=== PATIENT | male | born 1975 | race Two or more races ===

== ENCOUNTER 2022-07-06 15:00 | Inpatient (IN) | payer MEDICARE, MEDICAID ==
[~2022-07-06] VITALS: Ht 170.2 cm; Wt 83.0 kg
[~2022-07-06 15:00] MED LIST: ATEN-187 PO; BENZ2TAB71 PO; HALO5TAB23 PO; LISI10TA24 PO; METF-1211 PO
[2022-07-06 15:21] LABS: GLUCOMETER DEV NAME(LOC) ERT.5; GLUCOSE,POINT OF CARE 176 MG/DL (70-110)
[2022-07-06 15:48] LABS: BASOPHILS % (AUTO) 0.5 % (0.0-2.0); EOSINOPHILS % (AUTO) 2.9 % (1.0-6.0); HEMATOCRIT 43.2 % (41-53); HEMOGLOBIN 14.2 g/dL (13.5-17.5); LYMPHOCYTES # (AUTO) 2.3 K/uL (1.0-4.8); MEAN CORPUSCULAR HEMOGLOBIN 30.5 pg (26.0-34.0); MEAN CORPUSCULAR HGB CONC 32.9 G/dL (31.0-37.0); MEAN CORPUSCULAR VOLUME 93 fL (80-100); MONOCYTES # (AUTO) 0.6 K/uL (0.1-1.0); MONOCYTES % (AUTO) 8.7 % (2.0-9.0); NEUTROPHILS # (AUTO) 3.3 K/uL (1.8-7.7); NEUTROPHILS % (AUTO) 51.9 % (40.0-70.0); PLATELET COUNT (AUTO) 223 K/uL (150-450); RED BLOOD CELL COUNT(AUTO) 4.66 MIL/uL (4.50-5.90); RED CELL DISTRIBUTION WIDTH 13.6 % (11.5-14.5)
[2022-07-06 16:01] LABS: ANION GAP 7 mmol/L (8-16); CALCIUM, TOTAL 8.3 mg/dL (8.8-10.5); CARBON DIOXIDE 30 mmol/L (22-29); CHLORIDE 102 mmol/L (98-107); CREATININE 0.96 mg/dL (0.60-1.30); GLOMERULAR FILTR. RATE CALC > 60 mL/min (>60); GLUCOSE,RANDOM 136 mg/dL (70-110); POTASSIUM 3.7 mmol/L (3.5-5.1); SODIUM SERUM 139 mmol/L (136-145)
[2022-07-06 16:05] LABS: ALANINE AMINOTRANSFERASE 43 U/L (12-78); ALBUMIN 2.8 g/dL (3.4-5.0); ALKALINE PHOSPHATASE 80 U/L (46-116); ASPARTATE AMINOTRANSFERASE 27 U/L (15-37); BILIRUBIN,TOTAL 0.3 mg/dL (0.1-1.0); TOTAL PROTEIN, SERUM 6.4 g/dL (6.4-8.2)
[2022-07-06 17:29] LABS: AMPHET/METH SCREEN,URINE NEGATIVE (NEGATIVE); BARBITURATE SCREEN, URINE NEGATIVE (NEGATIVE); BENZODIAZEPINES SCREEN,URINE NEGATIVE (NEGATIVE); CANNABINOID SCREEN,URINE NEGATIVE (NEGATIVE); COCAINE SCREEN,URINE NEGATIVE (NEGATIVE); METHADONE SCREEN, URINE NEGATIVE (NEGATIVE); OPIATE SCREEN,URINE NEGATIVE (NEGATIVE); PHENCYCLIDINE SCREEN,URINE NEGATIVE (NEGATIVE)
[2022-07-06] MEDS ORDERED: ZOLPIDEM TARTRATE 10 MG TABLET PO PRN (17:30)
[2022-07-06] MEDS ORDERED: LORazepam 2 MG TABLET PO PRN (17:30)
[2022-07-06] MEDS ORDERED: HALOPERIDOL 5 MG TABLET PO PRN (17:30)
[2022-07-06 17:55] LABS: COVID AG,FIA SOURCE NASAL SWAB
[2022-07-07 03:52] VITALS: BP 105/78
[2022-07-07 04:39] VITALS: BP 105/78
[2022-07-07 06:36] LABS: GLUCOMETER DEV NAME(LOC) BV2S.; GLUCOSE,POINT OF CARE 79 MG/DL (70-110)
[2022-07-07 08:23] VITALS: BP 136/78
[2022-07-07] MEDS: DIVALPROEX SODIUM 500 MG DR TABLET PO SCH ×2 (12:46→20:35)
[2022-07-07] MEDS: OLANZapine 10 MG TABLET PO SCH (12:46)
[2022-07-07] MEDS: QUEtiapine FUMARATE 300 MG TABLET PO SCH (20:35)
[2022-07-07 21:46] VITALS: BP 136/78
[2022-07-08 08:00] VITALS: BP 125/78
[2022-07-08] MEDS: DIVALPROEX SODIUM 500 MG DR TABLET PO SCH ×2 (09:39→20:46)
[2022-07-08] MEDS: OLANZapine 10 MG TABLET PO SCH (09:39)
[2022-07-08 20:20] VITALS: BP 144/85
[2022-07-08] MEDS: QUEtiapine FUMARATE 300 MG TABLET PO SCH (20:46)
[2022-07-09] MEDS: DIVALPROEX SODIUM 500 MG DR TABLET PO SCH ×2 (08:26→20:33)
[2022-07-09] MEDS: OLANZapine 10 MG TABLET PO SCH (08:26)
[2022-07-09 08:44] VITALS: BP 114/76
[2022-07-09] MEDS: QUEtiapine FUMARATE 300 MG TABLET PO SCH (20:33)
[2022-07-09 20:43] VITALS: BP 129/89
[2022-07-10 08:22] VITALS: BP 125/90
[2022-07-10] MEDS: OLANZapine 10 MG TABLET PO SCH (08:26)
[2022-07-10] MEDS: DIVALPROEX SODIUM 500 MG DR TABLET PO SCH ×2 (08:26→20:32)
[2022-07-10 20:31] VITALS: BP 124/90
[2022-07-10] MEDS: QUEtiapine FUMARATE 300 MG TABLET PO SCH (20:32)
[2022-07-11 08:49] VITALS: BP 126/84
[2022-07-11] MEDS: DIVALPROEX SODIUM 500 MG DR TABLET PO SCH ×2 (09:05→20:28)
[2022-07-11] MEDS: OLANZapine 10 MG TABLET PO SCH (09:05)
[2022-07-11] MEDS: QUEtiapine FUMARATE 300 MG TABLET PO SCH (20:28)
[2022-07-11 20:44] VITALS: BP 115/72
[2022-07-12 08:08] VITALS: BP 131/80
[2022-07-12] MEDS: OLANZapine 10 MG TABLET PO SCH (09:38)
[2022-07-12] MEDS: DIVALPROEX SODIUM 500 MG DR TABLET PO SCH ×2 (09:38→20:36)
[2022-07-12] MEDS ORDERED: QUET300T19 PO (18:56)
[2022-07-12] MEDS ORDERED: OLAN10 PO (18:56)
[2022-07-12] MEDS ORDERED: DIVA-112 PO (18:56)
[2022-07-12 20:11] VITALS: BP 115/82
[2022-07-12] MEDS: QUEtiapine FUMARATE 300 MG TABLET PO SCH (20:35)
[2022-07-13] MEDS: DIVALPROEX SODIUM 500 MG DR TABLET PO SCH (08:51)
[2022-07-13] MEDS: OLANZapine 10 MG TABLET PO SCH (08:51)
[2022-07-13 09:13] VITALS: BP 134/90
== END 2022-07-13 14:30 | disposition home or self-care (01) | DRG 885 ==
LOC: EMS 15:50 → B2S 07-07 00:01 → B2X 07-07 16:06
PROVIDERS: ADMIT Psychiatry & Neurology Psychiatry; ATTEND Psychiatry & Neurology Psychiatry
DX: F20.0 Paranoid schizophrenia (principal); I10 Essential (primary) hypertension; Z20.822 Contact with and (suspected) exposure to COVID-19; F10.10 Alcohol abuse, uncomplicated; E78.5 Hyperlipidemia, unspecified; E11.9 Type 2 diabetes mellitus without complications; Z79.84 Long term (current) use of oral hypoglycemic drugs; Z79.899 Other long term (current) drug therapy
CPT/HCPCS: 80053; 80164; 80307; 82962; 85025; 99285; G0480

== ENCOUNTER 2023-10-14 20:20 | Inpatient (IN) | payer MEDICARE, MEDICAID ==
[~2023-10-14] VITALS: Ht 170.2 cm; Wt 80.7 kg
[~2023-10-14 20:20] MED LIST changes: -ATEN-187 PO; -BENZ2TAB71 PO; +DIVA-112 PO; -HALO5TAB23 PO; -LISI10TA24 PO; -METF-1211 PO; +OLAN10 PO; +QUET300T19 PO
[2023-10-14] MEDS ORDERED: ICOS1CAP PO (20:58)
[2023-10-14] MEDS ORDERED: RIVA2.5T3 PO (20:58)
[2023-10-14] MEDS ORDERED: DOCU-412 PO (20:58)
[2023-10-14] MEDS ORDERED: HALO10TA21 PO (20:58)
[2023-10-14] MEDS ORDERED: MULT-14 PO (20:58)
[2023-10-14] MEDS ORDERED: EMPA10TA3 PO (20:58)
[2023-10-14] MEDS ORDERED: LISI-894 PO (20:58)
[2023-10-14] MEDS ORDERED: BENZ2TAB84 PO (20:58)
[2023-10-14] MEDS ORDERED: TRAZ150T80 PO (20:58)
[2023-10-14] MEDS ORDERED: ATEN100T92 PO (20:58)
[2023-10-14] MEDS ORDERED: HYDR-4584 PO (20:58)
[2023-10-14] MEDS ORDERED: ASPI-1450 PO (20:58)
[2023-10-14] MEDS ORDERED: ARIP400S3 IM (20:58)
[2023-10-14] MEDS ORDERED: AMLO-258 PO (20:58)
[2023-10-14] MEDS ORDERED: OLAN10TA74 PO (20:58)
[2023-10-14] MEDS ORDERED: LEVO50 PO (20:58)
[2023-10-14] MEDS ORDERED: EZET10TA57 PO (20:58)
[2023-10-14] MEDS: LORazepam 2 MG/ML VIAL IM ONE (21:34)
[2023-10-14] MEDS: HALOPERIDOL LACTATE 5 MG/ML VIAL IM ONE (21:35)
[2023-10-14] MEDS: DiphenhydrAMINE HCL 50 MG/ML VIAL IM ONE (21:35)
[2023-10-14 21:59] LABS: BASOPHILS % (AUTO) 0.4 % (0.0-2.0); EOSINOPHILS % (AUTO) 2.4 % (1.0-6.0); HEMATOCRIT 38.9 % (41-53); HEMOGLOBIN 12.6 g/dL (13.5-17.5); LYMPHOCYTES # (AUTO) 2.8 K/uL (1.0-4.8); MEAN CORPUSCULAR HEMOGLOBIN 30.3 pg (26.0-34.0); MEAN CORPUSCULAR HGB CONC 32.3 G/dL (31.0-37.0); MEAN CORPUSCULAR VOLUME 94 fL (80-100); MONOCYTES # (AUTO) 1.1 K/uL (0.1-1.0); MONOCYTES % (AUTO) 12.1 % (2.0-9.0); NEUTROPHILS # (AUTO) 4.7 K/uL (1.8-7.7); NEUTROPHILS % (AUTO) 53.1 % (40.0-70.0); PLATELET COUNT (AUTO) 119 K/uL (150-450); RED BLOOD CELL COUNT(AUTO) 4.15 MIL/uL (4.50-5.90); RED CELL DISTRIBUTION WIDTH 15.2 % (11.5-14.5); WHITE BLOOD COUNT (AUTO) 8.9 K/uL (4.5-11.0)
[2023-10-14 22:06] LABS: ANION GAP 10 mmol/L (8-16); CALCIUM, TOTAL 8.2 mg/dL (8.8-10.5); CARBON DIOXIDE 29 mmol/L (22-29); CHLORIDE 100 mmol/L (98-107); CREATININE 0.99 mg/dL (0.60-1.30); GLOMERULAR FILTR. RATE CALC > 60 mL/min (>60); GLUCOSE,RANDOM 70 mg/dL (70-110); POTASSIUM 3.8 mmol/L (3.5-5.1); SODIUM SERUM 139 mmol/L (136-145); UREA NITROGEN, BLOOD 22 mg/dL (7-18)
[2023-10-14 22:09] LABS: ALCOHOL, BLOOD (SERUM) < 3 mg/dL (0-10)
[2023-10-14 22:09] LABS: APPEARANCE,URINE CLEAR (CLEAR); BILIRUBIN,URINE NEGATIVE (NEGATIVE); COLOR,URINE LIGHT YELLOW (YELLOW); GLUCOSE, URINE (UA) >=1000 mg/dL (NEGATIVE); KETONES,URINE NEGATIVE (NEGATIVE); LEUKOCYTE ESTERASE ,URINE NEGATIVE (NEGATIVE); NITRATE,URINE NEGATIVE (NEGATIVE); OCCULT BLOOD,URINE NEGATIVE (NEGATIVE); PROTEIN,URINE NEGATIVE (NEGATIVE); SPECIFIC GRAVITIY, URINE 1.015 (1.003-1.030); UROBILINOGEN,URINE <=1.0 mg/dL (<=1.0)
[2023-10-14 22:14] LABS: TROPONIN I-HIGH SENSITIVITY 5 ng/L (<76)
[2023-10-14 22:16] LABS: CREATINE KINASE, TOTAL ONLY 118 U/L (39-308)
[2023-10-14 22:19] LABS: ALCOHOL, URINE DRUG SCREEN NEGATIVE (NEGATIVE); AMPHET/METH SCREEN,URINE NEGATIVE (NEGATIVE); BARBITURATE SCREEN, URINE NEGATIVE (NEGATIVE); BENZODIAZEPINES SCREEN,URINE NEGATIVE (NEGATIVE); CANNABINOID SCREEN,URINE POSITIVE (NEGATIVE); COCAINE SCREEN,URINE NEGATIVE (NEGATIVE); METHADONE SCREEN, URINE NEGATIVE (NEGATIVE); OPIATE SCREEN,URINE NEGATIVE (NEGATIVE); PHENCYCLIDINE SCREEN,URINE NEGATIVE (NEGATIVE)
[2023-10-14 22:26] LABS: BACTERIA,URINE None Seen /HPF (None Seen); RBC,URINE None Seen /HPF (0-2); SQUAMOUS EPITHELIAL CELL,UR None Seen /LPF (None Seen); WBC,URINE None Seen /HPF (0-5)
[2023-10-14 23:20] LABS: COVID AG,FIA SOURCE NASAL SWAB
[2023-10-14 23:38] LABS: SARS-COV2 (COVID) ANTIGEN,FIA Negative (Negative)
[2023-10-15 00:15] VITALS: BP 128/84; PULSE 74; RESP 18; TEMP 97.2; O2SAT 97
[2023-10-15 01:51] VITALS: BP 130/74; PULSE 74; RESP 18; TEMP 97.4; O2SAT 98
[2023-10-15] MEDS ORDERED: DOCUSATE SODIUM 100 MG CAPSULE PO PRN (08:00)
[2023-10-15] MEDS ORDERED: GuaiFENesin/D-METHORPHAN [SUGAR-FREE] 200-20MG/10 ML SYRUP UDCUP PO PRN (08:00)
[2023-10-15] MEDS ORDERED: CloNIDine HCL 0.1 MG TABLET PO PRN (08:00)
[2023-10-15] MEDS ORDERED: LOPERAMIDE HCL 2 MG CAPSULE PO PRN (08:00)
[2023-10-15] MEDS ORDERED: MAGNESIUM HYDROXIDE SUSPENSION 30 ML UDCUP PO PRN (08:00)
[2023-10-15] MEDS ORDERED: ONDANSETRON 4 MG TABLET PO PRN (08:00)
[2023-10-15] MEDS ORDERED: PETROLATUM,WHITE 28 GM JELLY TP PRN (08:00)
[2023-10-15] MEDS ORDERED: ALBUTEROL SULFATE HFA 90 MCG/PUFF 8 GM INHALER IH PRN (08:00)
[2023-10-15] MEDS ORDERED: MAG HYDROX/ALUMINUM HYD/SIMETH ES 30 ML SUSPENSION UDCUP PO PRN (08:00)
[2023-10-15] MEDS ORDERED: ACETAMINOPHEN 325 MG TABLET PO PRN (08:00)
[2023-10-15] MEDS ORDERED: IBUPROFEN 400 MG TABLET PO PRN (08:00)
[2023-10-15] MEDS ORDERED: NICOTINE 14 MG/24 HOUR PATCH TD PRN (08:00)
[2023-10-15] MEDS: EMPAGLIFLOZIN 10 MG TABLET PO SCH (10:11)
[2023-10-15] MEDS: RIVAROXABAN 2.5 MG TABLET PO SCH (10:11)
[2023-10-15] MEDS: EZETIMIBE 10 MG TABLET PO SCH (10:11)
[2023-10-15] MEDS: ASPIRIN 81 MG CHEWABLE TABLET PO SCH (10:12)
[2023-10-15] MEDS: ATENOLOL 100 MG TABLET PO SCH (10:19)
[2023-10-15 10:42] VITALS: BP 117/82; PULSE 71; RESP 18; TEMP 96.8; O2SAT 99
[2023-10-15] MEDS: AmLODIPine BESYLATE 10 MG TABLET PO SCH (10:56)
[2023-10-15 12:09] VITALS: BP 135/68; PULSE 78; RESP 18; O2SAT 97
[2023-10-15] MEDS: LISINOPRIL 20 MG TABLET PO SCH (12:12)
[2023-10-15] MEDS: DIVALPROEX SODIUM 500 MG DR TABLET PO SCH (14:31)
[2023-10-15 16:30] VITALS: BP 112/65; PULSE 69; RESP 18; O2SAT 97
[2023-10-15] MEDS: HydrOXYzine HCL 50 MG TABLET PO SCH (16:32)
[2023-10-15] MEDS: HALOPERIDOL 10 MG TABLET PO SCH (16:32)
[2023-10-15 17:16] LABS: GLUCOMETER DEV NAME(LOC) 3EX.2; GLUCOSE,POINT OF CARE 90 MG/DL (70-110)
[2023-10-15] MEDS: TraZODone HCL 150 MG TABLET PO SCH (21:03)
[2023-10-15] MEDS: QUEtiapine FUMARATE 300 MG TABLET PO SCH (21:03)
[2023-10-15] MEDS: HALOPERIDOL 5 MG TABLET PO PRN (21:04)
[2023-10-15] MEDS: LORazepam 2 MG TABLET PO PRN (21:04)
[2023-10-15 21:14] VITALS: BP 135/86; PULSE 75; RESP 18; TEMP 97.6; O2SAT 97
[2023-10-16] MEDS: LEVOTHYROXINE SODIUM 50 MCG TABLET PO SCH (06:24)
[2023-10-16 06:41] LABS: GLUCOMETER DEV NAME(LOC) 3E.I 2; GLUCOSE,POINT OF CARE 85 MG/DL (70-110)
[2023-10-16 08:29] LABS: CHOL/HDL RATIO 1.9 (4.2-7.3)
[2023-10-16 08:38] LABS: HEMOGLOBIN A1C 5.3 % (3.8-5.6)
[2023-10-16 08:39] LABS: THYROID STIMULATING HORMONE 3.68 uIU/mL (0.36-3.74)
[2023-10-16 09:03] VITALS: BP 107/68; PULSE 72; RESP 18; TEMP 97.8; O2SAT 96
[2023-10-16 16:20] VITALS: BP 121/85; PULSE 88; RESP 18; O2SAT 97
[2023-10-16 17:55] LABS: GLUCOMETER DEV NAME(LOC) 3EX.2; GLUCOSE,POINT OF CARE 119 MG/DL (70-110)
[2023-10-16 20:35] VITALS: BP 151/96; PULSE 67; RESP 18; TEMP 97.7; O2SAT 98
[2023-10-17 06:01] LABS: GLUCOMETER DEV NAME(LOC) 3E.I 2; GLUCOSE,POINT OF CARE 89 MG/DL (70-110)
[2023-10-17 09:25] VITALS: BP 110/78; PULSE 78; RESP 18; TEMP 98; O2SAT 98
[2023-10-17 16:30] VITALS: BP 120/89; RESP 18
[2023-10-17 17:16] LABS: GLUCOMETER DEV NAME(LOC) 3EX.2; GLUCOSE,POINT OF CARE 89 MG/DL (70-110)
[2023-10-17 20:49] VITALS: BP 105/78; PULSE 69; RESP 18; TEMP 97.4; O2SAT 97
[2023-10-18 06:26] LABS: GLUCOMETER DEV NAME(LOC) 3E.I 2; GLUCOSE,POINT OF CARE 83 MG/DL (70-110)
[2023-10-18 09:20] VITALS: BP 150/67; PULSE 73; RESP 17; TEMP 97.5; O2SAT 97
[2023-10-18 16:36] LABS: GLUCOMETER DEV NAME(LOC) 3E.I 2; GLUCOSE,POINT OF CARE 111 MG/DL (70-110)
[2023-10-18 20:23] VITALS: BP 97/61; PULSE 69; RESP 16; TEMP 97.7; O2SAT 98
[2023-10-19 06:26] LABS: GLUCOMETER DEV NAME(LOC) 3E.I 2; GLUCOSE,POINT OF CARE 83 MG/DL (70-110)
[2023-10-19 08:30] VITALS: BP 150/95; PULSE 74; RESP 17; TEMP 97.6; O2SAT 99
[2023-10-19 16:32] LABS: GLUCOMETER DEV NAME(LOC) 3EX.2; GLUCOSE,POINT OF CARE 104 MG/DL (70-110)
[2023-10-19 22:47] VITALS: BP 97/61; PULSE 67; RESP 18; TEMP 99; O2SAT 97
[2023-10-20 06:31] LABS: GLUCOMETER DEV NAME(LOC) 3E.I 2; GLUCOSE,POINT OF CARE 90 MG/DL (70-110)
[2023-10-20 09:41] VITALS: BP 115/77; PULSE 71; RESP 19; TEMP 97.5; O2SAT 100
[2023-10-20 17:25] LABS: GLUCOMETER DEV NAME(LOC) 3E.I 2; GLUCOSE,POINT OF CARE 125 MG/DL (70-110)
[2023-10-20 22:34] VITALS: BP 111/72; PULSE 69; RESP 18; TEMP 97.6; O2SAT 99
[2023-10-21 06:30] LABS: GLUCOMETER DEV NAME(LOC) 3E.I 2; GLUCOSE,POINT OF CARE 114 MG/DL (70-110)
[2023-10-21 09:49] VITALS: BP 107/68; PULSE 67; RESP 17; TEMP 97.9; O2SAT 100
[2023-10-21 17:06] LABS: GLUCOMETER DEV NAME(LOC) 3E.I 2; GLUCOSE,POINT OF CARE 87 MG/DL (70-110)
[2023-10-21 22:19] VITALS: BP 131/89; PULSE 70; RESP 18; TEMP 97.5; O2SAT 100
[2023-10-22] MEDS: ZOLPIDEM TARTRATE 10 MG TABLET PO PRN (00:48)
[2023-10-22 06:56] LABS: GLUCOMETER DEV NAME(LOC) 3E.I 2; GLUCOSE,POINT OF CARE 75 MG/DL (70-110)
[2023-10-22 18:01] VITALS: BP 123/92; PULSE 74; RESP 18; O2SAT 99
[2023-10-22 18:06] LABS: GLUCOMETER DEV NAME(LOC) 3E.I 2; GLUCOSE,POINT OF CARE 103 MG/DL (70-110)
[2023-10-22 20:41] VITALS: BP 133/85; PULSE 60; RESP 16; TEMP 97.8; O2SAT 98
[2023-10-23 06:41] LABS: GLUCOMETER DEV NAME(LOC) 3E.I 2; GLUCOSE,POINT OF CARE 87 MG/DL (70-110)
[2023-10-23 11:48] VITALS: BP 126/86; PULSE 68; RESP 16; TEMP 97.3; O2SAT 97
[2023-10-23 17:35] LABS: GLUCOMETER DEV NAME(LOC) 3E.I 2; GLUCOSE,POINT OF CARE 121 MG/DL (70-110)
[2023-10-23 20:50] VITALS: BP 107/71; RESP 18; TEMP 98.1; O2SAT 97
[2023-10-24 05:31] LABS: GLUCOMETER DEV NAME(LOC) 3E.I 2; GLUCOSE,POINT OF CARE 85 MG/DL (70-110)
[2023-10-24 09:49] VITALS: BP 103/72; PULSE 86; RESP 17; TEMP 97.5; O2SAT 97
[2023-10-24] MEDS ORDERED: HYDR-4584 PO (11:04)
[2023-10-24] MEDS ORDERED: LISI-894 PO (11:04)
[2023-10-24] MEDS ORDERED: AMLO-258 PO (11:04)
[2023-10-24] MEDS ORDERED: LEVO50 PO (11:04)
[2023-10-24] MEDS ORDERED: TRAZ-283 PO (11:04)
[2023-10-24] MEDS ORDERED: ASPI-1450 PO (11:04)
[2023-10-24] MEDS ORDERED: HALO10TA21 PO (11:04)
[2023-10-24] MEDS ORDERED: EZET10TA57 PO (11:04)
[2023-10-24] MEDS ORDERED: RIVA2.5T3 PO (11:04)
[2023-10-24] MEDS ORDERED: ATEN100T92 PO (11:04)
[2023-10-24] MEDS ORDERED: EMPA10TA3 PO (11:04)
[2023-10-24 12:05] LABS: GLUCOMETER DEV NAME(LOC) 3E.I 2; GLUCOSE,POINT OF CARE 96 MG/DL (70-110)
== END 2023-10-24 14:45 | disposition home or self-care (01) | DRG 885 ==
LOC: EMS 20:20 → 3EX 10-15 00:36
PROVIDERS: ADMIT Psychiatry & Neurology Psychiatry; ATTEND Psychiatry & Neurology Psychiatry
PROC: GZ52ZZZ Individual Psychotherapy, Cognitive (ICD-10-PCS; principal; 2023-10-15)
DX: F20.0 Paranoid schizophrenia (principal); E11.9 Type 2 diabetes mellitus without complications; Z20.822 Contact with and (suspected) exposure to COVID-19; I10 Essential (primary) hypertension; D64.9 Anemia, unspecified; F12.10 Cannabis abuse, uncomplicated; F41.9 Anxiety disorder, unspecified; G47.00 Insomnia, unspecified; E78.5 Hyperlipidemia, unspecified; I48.91 Unspecified atrial fibrillation; E03.9 Hypothyroidism, unspecified; Z87.891 Personal history of nicotine dependence; Z91.51 Personal history of suicidal behavior
CPT/HCPCS: 80048; 80061; 80164; 80307; 81001; 82550; 82962; 83036; 84443; 84484; 85025; 93005; 99285; G0378; G0480